=== PATIENT | female | born 1960 | race Caucasian/White ===

== ENCOUNTER 2018-01-25 09:22 | Emergency (ER) | payer SELFPAY ==
[2018-01-25] MEDS ORDERED: Zofran 4 MG/2 ML VIAL IV ONE (09:45)
[2018-01-25] MEDS ORDERED: Sodium Chloride 0.9% 1000 ML 1,000 ML IV SCH (09:45)
[2018-01-25] MEDS ORDERED: Nitrostat 0.4 MG (ED) SL ONE ×2 (09:45→09:54)
[2018-01-25] MEDS ORDERED: MORPHINE SULFATE 2 MG INJ IV ONE (09:45)
[2018-01-25] MEDS ORDERED: BABY ASPIRIN 81 MG CHEW PO ONE (09:45)
--- NOTE | 2018-01-25 09:45 | ERPHSYRPT ---
- History of Present Illness Time Seen by Provider: 01/25/18 09:35 Historian: patient Exam Limitations: no limitations Patient Subjective Stated Complaint: here for chest pain, nausea and vomiting and back pain that started at 0300 this morning while at work Triage Nursing Assessment: pt walked back, alert, resp easy ,skin w/d/p, no edema Physician History: 57 y/o white female smoker of cigarettes presents with sudden onset of severe back pain which radiates to chest. had one episode of vomiting. 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 only surgery is a btl. no soa. no abd pain. Timing/Duration: today Activities at Onset: none Quality: sharpness, stabbing Location: back (then to chest), other (back to chest) Severity of Pain-Max: moderate Severity of Pain-Current: moderate Modifying Factors: Improves With: nothing Associated Symptoms: nausea Prior Chest Pain/Cardiac Workup: no prior chest pain Nitro Today/Relief: no nitro taken today Aspirin Treatment Today: no aspirin today Allergies/Adverse Reactions: No Known Drug Allergies Allergy (Unverified 01/25/18 09:39) Hx Influenza Vaccination/Date Given: No Hx Pneumococcal Vaccination/Date Given: No Immunizations Up to Date: Yes - Review of Systems Constitutional: No Symptoms Eyes: No Symptoms Ears, Nose, & Throat: No Symptoms Respiratory: No Symptoms Cardiac: No Symptoms Abdominal/Gastrointestinal: No Symptoms Genitourinary Symptoms: No Symptoms Musculoskeletal: No Symptoms Skin: No Symptoms Neurological: No Symptoms Psychological: No Symptoms Endocrine: No Symptoms Hematologic/Lymphatic: No Symptoms Immunological/Allergic: No Symptoms All Other Systems: Reviewed and Negative - Past Medical History Pertinent Past Medical History: No Neurological History: No Pertinent History ENT History: No Pertinent History Cardiac History: No Pertinent History Respiratory History: No Pertinent History Endocrine Medical History: No Pertinent History Musculoskeletal History: No Pertinent History GI Medical History: No Pertinent History History: No Pertinent History Psycho-Social History: No Pertinent History Female Reproductive Disorders: No Pertinent History - Past Surgical History Past Surgical History: Yes Neuro Surgical History: No Pertinent History Cardiac: No Pertinent History Respiratory: No Pertinent History Gastrointestinal: No Pertinent History Genitourinary: No Pertinent History Musculoskeletal: No Pertinent History Female Surgical History: No Pertinent History, Tubal Ligation - Social History Smoking Status: Current every day smoker Exposure to second hand smoke: Yes Drug Use: none Patient Lives Alone: No - Female History Hx Last Menstrual Period: post Hx Now: No - Nursing Vital Signs Nursing Vital Signs: Initial Vital Signs Temperature 97.0 F 01/25/18 09:44 Pulse Rate 71 01/25/18 09:44 Respiratory Rate 18 01/25/18 09:44 Blood Pressure 171/94 01/25/18 09:44 O2 Sat by Pulse Oximetry 97 01/25/18 09:44 Pain Scale Pain Intensity 0 - Physical Exam General Appearance: moderate distress, alert, anxiety Eye Exam: PERRL/EOMI, eyes nml inspection Ears, Nose, Throat Exam: normal ENT inspection, moist mucous membranes Neck Exam: normal inspection, non-tender, supple Respiratory Exam: normal breath sounds, chest tenderness, lungs clear, airway intact, No respiratory distress, No accessory muscle use, No rhonchi, No wheezing, No stridor Cardiovascular Exam: regular rate/rhythm, normal heart sounds, normal peripheral pulses Gastrointestinal/Abdomen Exam: soft, normal bowel sounds, No tenderness, No guarding, No rebound Pelvic Exam: not done Rectal Exam: not done Back Exam: normal inspection, normal range of motion, No CVA tenderness, No vertebral tenderness Extremity Exam: normal inspection, normal range of motion, pelvis stable Neurologic Exam: alert, oriented x 3, cooperative, 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 Skin Exam: normal color, warm, dry Lymphatic Exam: No adenopathy SpO2 Interpretation: normal - Course Nursing assessment & vital signs reviewed: Yes EKG Interpreted by Me: RATE (81), NORMAL AXIS, NORMAL INTERVALS, NORMAL QRS, NORMAL ST-T (no comparison) Ordered Tests: Active Orders 24 hr Category Date Time Status Director Statistical Programming STAT Care 01/25/18 09:47 Active EKG-ER Only STAT Care 01/25/18 09:45 Active IV Insertion STAT Care 01/25/18 09:45 Active Pulse Oximetry (ED) STAT Care 01/25/18 09:45 Active CHEST WITH CONTRAST [CT] Stat Exams 01/25/18 09:48 Completed CBC W DIFF Stat Lab 01/25/18 10:21 Completed CMP Stat Lab 01/25/18 10:21 Completed D-DIMER QUANTITATION Stat Lab 01/25/18 10:21 Completed NT PRO BNP Stat Lab 01/25/18 10:21 Completed PROTIME WITH INR Stat Lab 01/25/18 10:21 Completed TROPONIN Q3H Lab 01/25/18 10:21 Completed TROPONIN Q3H Lab 01/25/18 13:00 Ordered TROPONIN Q3H Lab 01/25/18 16:00 Ordered TROPONIN Q3H Lab 01/25/18 19:00 Ordered TROPONIN Q3H Lab 01/25/18 22:00 Ordered Medication Summary Generic Name Dose Route Start Last Admin Trade Name Jesus PRN Reason Stop Dose Admin Sodium Chloride 1,000 mls @ 50 mls/hr 01/25/18 09:45 01/25/18 10:08 Sodium Chloride 0.9% 1000 Ml IV 02/24/18 09:44 50 mls/hr .Q20H LEONARDO Administration Discontinued Medications Generic Name Dose Route Start Last Admin Trade Name Jesus PRN Reason Stop Dose Admin Aspirin 324 mg 01/25/18 09:45 01/25/18 10:57 Baby Aspirin 81 Mg Chew PO 01/25/18 09:46 324 mg STAT ONE Administration Aspirin Confirm 01/25/18 09:54 Baby Aspirin 81 Mg Chew Administered 01/25/18 09:55 Dose 324 mg .ROUTE .STK-MED ONE Morphine Sulfate 2 mg 01/25/18 09:45 01/25/18 10:09 Morphine Sulfate 2 Mg Inj IV 01/25/18 09:46 2 mg STAT ONE Administration Morphine Sulfate Confirm 01/25/18 09:54 Morphine Sulfate 2 Mg Inj Administered 01/25/18 09:55 Dose 2 mg .ROUTE .STK-MED ONE Nitroglycerin 0.4 mg 01/25/18 09:45 01/25/18 10:57 Nitrostat 0.4 Mg (Ed) SL 01/25/18 09:46 0.4 mg STAT ONE Administration Nitroglycerin Confirm 01/25/18 09:54 Nitrostat 0.4 Mg (Ed) Administered 01/25/18 09:55 Dose 0.4 mg SL .STK-MED ONE Ondansetron HCl 4 mg 01/25/18 09:45 01/25/18 10:07 Zofran 4 Mg/2 Ml Vial IV 01/25/18 09:46 4 mg STAT ONE Administration Ondansetron HCl Confirm 01/25/18 09:53 Zofran 4 Mg/2 Ml Vial Administered 01/25/18 09:54 Dose 4 mg .ROUTE .STK-MED ONE Lab/Rad Data: Laboratory Result Diagrams 01/25/18 10:21 01/25/18 10:21 Laboratory Results 01/25/18 01/25/18 01/25/18 Range/Units 10:21 10:21 10:21 WBC (4.0-10.5) K/mm3 RBC (4.1-5.4) M/mm3 Hgb (12.0-16.0) gm/dl Hct (35-47) % MCV (78-100) fl MCH (26-32) pg MCHC (32-36) g/dl RDW (11.5-14.0) % Plt Count (150-450) K/mm3 MPV (6-9.5) fl Gran % (36.0-66.0) % Eos # (Auto) (0-0.5) Absolute Lymphs (auto) (1.0-4.6) Absolute Monos (auto) (0.0-1.3) Lymphocytes % (24.0-44.0) % Monocytes % (0.0-12.0) % Eosinophils % (0.00-5.0) % Basophils % (0.0-0.4) % Absolute Granulocytes (1.4-6.9) Basophils # (0-0.4) PT 10.9 (9.95-12.35) SECONDS INR 0.94 (0.8-3.0) D-Dimer 295 (215-500) ng/mL Sodium 136 L (137-145) mmol/L Potassium 4.3 (3.5-5.1) mmol/L Chloride 101 (98-107) mmol/L Carbon Dioxide 24 (22-30) mmol/L Anion Gap 15.1 H (5-15) MEQ/L BUN 13 (7-17) mg/dL Creatinine 0.63 (0.52-1.04) mg/dL Estimated GFR > 60.0 ML/MIN Glucose 153 H (74-106) mg/dL Calcium 10.1 (8.4-10.2) mg/dL Total Bilirubin 0.40 (0.2-1.3) mg/dL AST 19 (14-36) U/L ALT 19 (0-35) U/L Alkaline Phosphatase 106 (38-126) U/L Troponin I < 0.012 (0.000-0.034) ng/mL NT-Pro-B Natriuret Pep 101 (0-900) pg/mL Serum Total Protein 8.3 H (6.3-8.2) g/dL Albumin 4.8 (3.5-5.0) g/dL 01/25/18 Range/Units 10:21 WBC 14.0 H (4.0-10.5) K/mm3 RBC 5.38 (4.1-5.4) M/mm3 Hgb 16.3 H (12.0-16.0) gm/dl Hct 48.9 H (35-47) % MCV 90.9 (78-100) fl MCH 30.2 (26-32) pg MCHC 33.3 (32-36) g/dl RDW 13.7 (11.5-14.0) % Plt Count 348 (150-450) K/mm3 MPV 9.6 H (6-9.5) fl Gran % 77.3 H (36.0-66.0) % Eos # (Auto) 0.03 (0-0.5) Absolute Lymphs (auto) 2.10 (1.0-4.6) Absolute Monos (auto) 1.01 (0.0-1.3) Lymphocytes % 15.0 L (24.0-44.0) % Monocytes % 7.2 (0.0-12.0) % Eosinophils % 0.2 (0.00-5.0) % Basophils % 0.3 (0.0-0.4) % Absolute Granulocytes 10.82 H (1.4-6.9) Basophils # 0.04 (0-0.4) PT (9.95-12.35) SECONDS INR (0.8-3.0) D-Dimer (215-500) ng/mL Sodium (137-145) mmol/L Potassium (3.5-5.1) mmol/L Chloride (98-107) mmol/L Carbon Dioxide (22-30) mmol/L Anion Gap (5-15) MEQ/L BUN (7-17) mg/dL Creatinine (0.52-1.04) mg/dL Estimated GFR ML/MIN Glucose (74-106) mg/dL Calcium (8.4-10.2) mg/dL Total Bilirubin (0.2-1.3) mg/dL AST (14-36) U/L ALT (0-35) U/L Alkaline Phosphatase (38-126) U/L Troponin I (0.000-0.034) ng/mL NT-Pro-B Natriuret Pep (0-900) pg/mL Serum Total Protein (6.3-8.2) g/dL Albumin (3.5-5.0) g/dL - Progress Progress: improved, re-examined Air Movement: good Progress Note: 01/25/18 12:44 pt states she feels best shes ever felt. no cp no back pain. Blood Culture(s) Obtained: No Antibiotics given: No Counseled pt/family regarding: lab results, diagnosis, need for follow-up, rad results - Departure Time of Disposition: 12:44 Departure Disposition: Home Clinical Impression: Chest pain, Hypertension Condition: Stable Critical Care Time: No Referrals: DOCTOR,NO FAMILY [Primary Care Provider] - Additional Instructions: follow up with primary doctor for further management of your high blood pressure. Prescriptions: Hydrochlorothiazide 25 mg [hydroDIURIL 25 MG] 25 mg PO DAILY #10 tablet
[2018-01-25 09:46] VITALS: O2SAT 97
[2018-01-25] MEDS ORDERED: Zofran 4 MG/2 ML VIAL ONE (09:53)
[2018-01-25] MEDS ORDERED: BABY ASPIRIN 81 MG CHEW ONE (09:54)
[2018-01-25] MEDS ORDERED: MORPHINE SULFATE 2 MG INJ ONE (09:54)
[2018-01-25] MEDS ORDERED: Sodium Chloride 0.9% 1000 ML 1,000 ML ONE (09:54)
[2018-01-25 10:25] LABS: BASOPHIL % 0.3 % (0.0-0.4); Basophil (Absolute #) 0.04 (0-0.4); Eosinophil % 0.2 % (0.00-5.0); Eosinophil (Absolute #) 0.03 (0-0.5); Granulocyte Absolute (ANC) 10.82 (1.4-6.9); Granulocytes % 77.3 % (36.0-66.0); Hematocrit 48.9 % (35-47); Hemoglobin 16.3 gm/dl (12.0-16.0); Mean Cell Volume 90.9 fl (78-100); Mean Corpuscular Hgb Concent. 33.3 g/dl (32-36); Mean Platelet Volume 9.6 fl (6-9.5); Monocyte (Absolute #) 1.01 (0.0-1.3); Monocytes % 7.2 % (0.0-12.0); Platelet Count 348 K/mm3 (150-450); Red Blood Count 5.38 M/mm3 (4.1-5.4); Red Cell Distribution Width 13.7 % (11.5-14.0)
[2018-01-25 10:34] LABS: Mean Corpuscular Hemoglobin 30.2 pg (26-32)
[2018-01-25 10:39] LABS: INR 0.94 (0.8-3.0)
--- NOTE | 2018-01-25 10:58 | XRAY ---
Indication: Chest pain. Multiple contiguous axial images obtained through the chest using 100 cc Isovue 370 contrast and PE protocol. Comparison: None There is suboptimal opacification of the pulmonary arteries limiting evaluation for pulmonary embolus. No large central pulmonary embolus. Heart is not enlarged. Aorta is normal in course and caliber. No pathologic mediastinal/hilar lymphadenopathy. Small hiatal hernia. Lungs are inflated with minimal bibasilar fibrosis/scarring. No suspicious pulmonary mass, infiltrate, or effusion. Bony thorax intact with mild degenerative changes throughout the spine. Limited upper abdomen demonstrates left renal cysts, largest 1.9 cm. Also gallstones, largest 1.8 cm. Impression: 1. Pulmonary embolus evaluation limited due to suboptimal contrast opacification. No large central pulmonary embolus. 2. No acute cardiopulmonary abnormalities. 3. Incidental hiatal hernia, left renal cysts, and cholelithiasis. CTDI 16.44
[2018-01-25 11:13] LABS: ALBUMIN 4.8 g/dL (3.5-5.0); ALKALINE PHOSPHATASE 106 U/L (38-126); ANION GAP 15.1 MEQ/L (5-15); BLOOD UREA NITROGEN 13 mg/dL (7-17); CHLORIDE 101 mmol/L (98-107); Calcium 10.1 mg/dL (8.4-10.2); Carbon Dioxide 24 mmol/L (22-30); Creatinine 1 0.63 mg/dL (0.52-1.04); Glucose 153 mg/dL (74-106); NT PRO BNP 101 pg/mL (0-900); Potassium 4.3 mmol/L (3.5-5.1); SGOT/AST 19 U/L (14-36); SGPT/ALT 19 U/L (0-35); SODIUM 136 mmol/L (137-145); Total Protein 8.3 g/dL (6.3-8.2)
[2018-01-25 11:31] VITALS: PULSE 73
[2018-01-25 13:00] VITALS: BP 160/81
== END 2018-01-25 13:09 | disposition home or self-care (01) ==
LOC: ED 09:22
DX: R07.9 Chest pain, unspecified (principal); R11.2 Nausea with vomiting, unspecified; M54.9 Dorsalgia, unspecified; R10.9 Unspecified abdominal pain
CPT/HCPCS: 36000; 36415; 71260; 80053; 83880; 84484; 85025; 85379; 85610; 93005; 93041; 96374; 96375; 99284; J2270; J2405; A9270-GY